=== PATIENT | female | born 1965 | race African-American/Black ===

== ENCOUNTER → 2021-01-15 02:10 | Outpatient (CLI) | payer OTHER, SELFPAY ==
[2021-01-15 19:56] LABS: SARS-CoV-2 RNA PCR Negative
== END ==
PROVIDERS: PCP Chiropractor; Visit Provider Orthopaedic Surgery
DX: Z01.812 Encounter for preprocedural laboratory examination (principal); Z20.822 Contact with and (suspected) exposure to COVID-19
CPT/HCPCS: C9803; U0003; U0005

== ENCOUNTER 2021-01-15 09:25 | Outpatient (CLI) | payer OTHER, SELFPAY ==
[2021-01-15 10:00] LABS: Hematocrit 37.9 % (37.0-47.0); Hemoglobin 12.3 g/dL (12.0-15.0)
== END 2021-01-15 09:26 | disposition home or self-care (01) ==
LOC: ANHLAB 09:29
PROVIDERS: PCP Chiropractor; Visit Provider Anesthesiology
DX: Z01.812 Encounter for preprocedural laboratory examination (principal); D64.9 Anemia, unspecified
CPT/HCPCS: 36415; 85014; 85018

== ENCOUNTER 2021-01-19 01:54 | Day surgery (SDC) | payer OTHER, SELFPAY ==
[2021-01-14 10:44] VITALS: BMI 35.6
--- NOTE | 2021-01-18 13:12 | WPDANESEPPF ---
Anes - Initial Pre Proc Eval Procedure: Operation Date: 01/19/21 11:00 Proposed Procedures p Right Knee Arthroscopy - Ed Corbett MD Date/Time: 01/18/21 13:12 Surgeon: Ed Corbett MD Pre Op Diagnosis: right knee lateral and medial meniscus tear Patient Data Age: 55 Gender: F Height: 1.57 m Weight: 88.45 kg Allergies Allergy/AdvReac Type Severity Reaction Status Date / Time No Known Allergies Allergy Verified 01/19/21 09:35 Home Medications Medication Instructions Recorded Confirmed Type celecoxib 200 mg capsule 200 mg PO DAILY 12/20/20 01/19/21 History cetirizine 10 mg tablet 10 mg PO DAILY PRN 12/20/20 01/19/21 History cyclobenzaprine 10 mg tablet 10 mg PO HS tablet 12/20/20 01/19/21 History nortriptyline 25 mg capsule 25 mg PO TID 12/20/20 01/19/21 History omeprazole 20 mg capsule,delayed 20 mg PO DAILY 12/20/20 01/19/21 History release chlorhexidine gluconate 4 % 1 applic TOPICAL ONCE #237 ml 12/21/20 01/19/21 Rx topical liquid apple cider vinegar 500 mg PO DAILY 01/14/21 01/19/21 History ascorbic acid (vitamin C) [Vitamin 500 mg PO DAILY 01/14/21 01/19/21 History C] calcium 600 mg PO DAILY 01/14/21 01/19/21 History ferrous sulfate [iron] 325 mg PO DAILY 01/14/21 01/19/21 History mv,Ca,min-folic acid-vit K1 1 tablet PO DAILY 01/14/21 01/19/21 History [One-A-Day Women's 50 Plus] Patient hx anesthesia problems: none Family hx anesthesia problems: none PMFSH Past Medical History Medical History (Updated 01/19/21 @ 10:10 by Judd Alfaro DO) Anemia JUAN (obstructive sleep apnea) non compliant Osteoarthritis Unintentional weight loss Surgical History Surgical History (Updated 01/18/21 @ 13:12 by Judd Alfaro DO) History of History of hysterectomy Family History Family History (Updated 12/20/20 @ 15:32 by Lucy Melvin RT(R)) Other Arthritis Asthma Neuropathy Social History Social History (Updated 12/20/20 @ 10:36 by Spring Blum MA) Smoking status: Never smoker Alcohol intake: never Substance use: never Substance use type: does not use Living arrangements: other Additional living arrangements comments: WITH [facility] Gender identity (if verbalized by the patient): Female Spiritual care concerns: No Anes - Eval Final PreProcedure Day of Procedure 01/18/21 13:12 Patient weight: obese Heart: regular rate and rhythm Lungs: clear to auscultation and normal air movement Airway: Mallampati scale class II Neurological: alert and oriented Last oral intake: >/= 8 hours ASA classification: III Emergent: no Anesthetic plan: proceed Anesthesia type and monitoring: general LMA and standard monitoring Informed Consent: The patient's anesthetic plan and its attendant risks and benefits were discussed with the patient/family/POA. Questions were solicited and answers provided to the satisfaction of the patient/family/POA.
[2021-01-19] VITALS (8 sets, daily range): BP systolic 129–156; BP diastolic 74–95; PULSE 86–95; RESP 12–20; TEMP 36.2–36.6; O2SAT 95–100
--- NOTE | 2021-01-19 07:27 | WPDHPUPDATE1 ---
History and Physical Update Update Date/Time: 01/19/21 07:27 History and Physical has been reviewed, including an updated exam of the patient. There are NO changes in the patient's condition. Risks, benefits, and alternatives have been discussed and questions answered. Patient agrees to proceed with procedure.
[2021-01-19] MEDS: CELECOXIB 200 MG CAPSULE PO (09:55)
[2021-01-19] MEDS: ACETAMINOPHEN 500 MG TABLET 1000 MG PO (09:55)
[2021-01-19] MEDS: LACTATED RINGERS 1,000 ML 30 ML IV CONT ×2 (10:00→12:34)
[2021-01-19] MEDS: ceFAZolin 2 GM/D5W 50 ML 2 GM/50 ML BAG IVPB (10:54)
[2021-01-19] MEDS: BUPIVACAINE HCL 0.5% PF 30 ML VIAL INFILTRATE (11:19)
[2021-01-19] MEDS: fentaNYL CITRATE INJ (*CRX) 100 MCG/2 ML VIAL 25 MCG IV PUSH ×4 (12:53→13:12)
--- NOTE | 2021-01-19 12:56 | P.OP_ITS ---
Procedure Note - Detailed Date of procedure: 01/19/21 Pre-op diagnosis: right knee lateral and medial meniscus tear Post-op diagnosis: other (medial meniscus tear, lateral meniscus tear, chondromalacia, synovitis) Procedure performed: RIGHT KNEE SCOPE WITH PARTIAL MEDIAL AND LATERAL MENISCE CTOMIES AND MAJOR SYNOVECTOMY Description of procedure: PATIENT WAS TAKEN TO THE OR. THE RIGHT LEG WAS PREPPED AND DRAPED STERILE. TROCARS WERE PLACED IN THE USUAL FASHION. CAMERA WAS INTRODUCED. THERE WAS CHONDROMALACIA TO THE PATELLA FEMORAL JOINT. THERE WAS A LOT OF SYNOVITIS IN ALL COMPARTMENTS. THE MEDIAL COMPARTMENT SHOWED CHONDROMALACIA TO THE MED FEMORAL CONDYLE. A SHAVER WAS USED TO PREFORM A CHONDROPLASTY. THERE WAS A COMPLEX MEDIAL MENISCUS TEAR. THE TEAR EXTENDED FROM THE MENISCAL ROOT TO THE POSTERIOR HORN MAIN BODY. THE TEAR WAS RESECTED WITH A BITER AND A SHAVER DOWN TO A SMOOTH BASE. ABOUT 20% OF THE MENISCUS WAS REMOVED. THE ACL WAS INTACT. THE LATERAL MENISCUS HAD A COMPLEX TEAR TO THE MAIN BODY. IT WAS DEBRIDED DOWN TO A SMOOTH BASE. THE LATERAL COMPARTMENT HAD NO SIGNIFICANT CHONDROMALACIA. THE PATELLO FEMORAL JOINT UNDERWENT CHONDROPLASTY. 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 SYNOVECTOMY WAS PREFORMED IN THE SUPERIOR MEDIAL COMPARTMENT AND IN HOFFA'S SYNOVIUM. THE PATELLA TRACKED NORMALLY WITHIN THE TROCHLEA. THE WOUNDS WERE APPROXIMATED WITH 4.0 NYLON. STERILE DRESSING WAS APPLIED. PATIENT WAS EXTUBATED. Anesthesia: GLMA Surgeon: Ed Corbett MD Estimated blood loss (mL): 5 Complications: No immediate complications Condition: stable Disposition: PACU
[2021-01-19] MEDS: oxyCODONE HCL (*CRX) 5 MG TAB IR PO (13:44)
== END 2021-01-19 14:32 | disposition home or self-care (01) ==
PROVIDERS: PCP Chiropractor; Visit Provider Orthopaedic Surgery
PROC: (CPT 29870; principal; 2021-01-19 11:00)
DX: M23.321 Other meniscus derangements, posterior horn of medial meniscus, right knee (principal); M23.361 Other meniscus derangements, other lateral meniscus, right knee; M94.261 Chondromalacia, right knee; M65.861 Other synovitis and tenosynovitis, right lower leg; D64.9 Anemia, unspecified; G47.33 Obstructive sleep apnea (adult) (pediatric); E66.9 Obesity, unspecified; Z68.34 Body mass index [BMI] 34.0-34.9, adult
CPT/HCPCS: 29880; 36415; 85014; 85018; A9270; C9803; J0690; J1100; J1885; J2250; J2405; J2704; J3010; J7120; U0003; U0005